=== PATIENT | female | born 1960 | race Caucasian/White ===

== ENCOUNTER → 2021-04-03 | Outpatient (CLI) | payer OTHER ==
--- NOTE | 2021-04-03 15:38 | KCIC ---
EXAM: CT coronary artery calcium screening; radiologist over read. HISTORY: Hypertension. Palpitations. Hypercholesterolemia. TECHNIQUE: Computed tomographic images of the chest were obtained without contrast. Multiplanar refor matting was performed. *One or more of the following individualized dose reduction techniques were utilized for this examina tion: 1. Automated exposure control. 2. Adjustment of the mA and/or kV according to patient size. 3. Use of iterative reconstruction technique. COMPARISON: None. FINDINGS: The heart is normal in size. The visualized aorta is normal in caliber. There is no lymphad enopathy. There is no infiltrate, pleural effusion, pneumothorax or suspicious pulmonary nodule. Ther e is no acute finding involving the visualized upper abdomen or osseous structures. Coronary artery calcium score: 0. IMPRESSION: 1. Coronary artery calcium score of 0. 2. No significant incidental thoracic finding. Electronically signed by: Jeanne Ku MD (04/03/2021 3:36 PM) [id number]
== END ==
LOC: KCIC CT 15:13
PROVIDERS: ATTEND Family Medicine
DX: R03.0 Elevated blood-pressure reading, without diagnosis of hypertension (principal); R00.2 Palpitations
CPT/HCPCS: 75571

== ENCOUNTER → 2021-05-13 | Outpatient (CLI) | payer BC ==
--- NOTE | 2021-05-13 17:35 | CARD ---
MR#: [id number] Date of Study: 05/13/2021 Ordering Physician: FARHAT DIAZ, Referring Physician: Kenneth HYMAN: Leigh Ann Angel RDCS APPROVED REPORT INDICATION Palpitations Reason : Abnormal EKG PROCEDURE The patient underwent an Exercise Stress Test using the Tarun Protocol. Blood pressure, heart rate, a nd EKG were monitored. An Echocardiogram was performed by building energy retrofit technician in four stages in quad fashion. At peak stress four se lected images were obtained and placed side by side with resting images for comparison. STRESS ECHO FINDINGS The resting Echocardiogram showed normal left ventricular systolic contractility with an estimated Ej ection Fraction of about 60 %. The Stress Echocardiogram showed normal augmentation of myocardial wall segments using a 16 segment m merari. The Stress Echocardiogram left ventricular systolic contractility has an estimated Ejection Fraction of about 75%. Test Type: Exercise Stress Nurse/Tech: Elyssa Garcia RN Test Indications: PVC's, family history of heart disease Cardiac History and Allergies: Family history, Hypertension Medications: see EMR Medical History: see EMR Resting ECG: SR Resting Heart Rate: 75 bpm Resting Blood Pressure: 150/93mmHg Pretest Chest Pain: No chest pain Nurse/Tech Notes S1,S2 and lungs clear to auscultation. Stress Symptoms No chest pain or symptoms. POST EXERCISE Reason for Termination: Reached target heart rate Target HR: Yes Max HR: 164 bpm 102% of Maximum Predicted HR: 161 bpm Exercise duration: 9:32 min:sec, 4 Stage Exercise capacity: 10.1METs Max Blood Pressure: 170/85mmHg Blood Pressure response to exercise: Normal blood pressure response during stress. Heart Rate response to exercise: WNL Chest Pain: No. Arrhythmia: No. ST Change: No. INTERPRETATION Stress EKG Conclusion: Baseline EKG showed sinus rhythm. No ischemic changes at peak stress. No arr hythmias. <Conclusion> Treadmill exercise stress echocardiogram did not show any evidence of ischemia or infarct. Normal left ventricle systolic function with ejection fraction estimated at 60%. Patient had good activity tolerance. Low risk for cardiac events. Signed by : Farhat Diaz, Electronically Approved : 05/13/2021 17:35:37
== END ==
LOC: ECHO 12:55
PROVIDERS: ATTEND Internal Medicine Cardiovascular Disease
DX: E78.5 Hyperlipidemia, unspecified (principal); R00.2 Palpitations
CPT/HCPCS: 93017; 93350